=== PATIENT | female | born 1950 | race Caucasian/White ===

== ENCOUNTER 2023-12-26 14:21 | Inpatient (IN) | payer MEDICARE ==
[~2023-12-26] VITALS: Ht 170.2 cm; Wt 75.7 kg
[2023-12-26 15:09] LABS: BASOPHILS % (AUTO) 0.7 % (0.0-2.0); EOSINOPHILS # (AUTO) 0.4 K/uL (0.0-0.7); EOSINOPHILS % (AUTO) 5.8 % (0.0-6.0); HEMATOCRIT 33 % (33-45); HEMOGLOBIN 10.3 g/dL (11.5-14.8); LYMPHOCYTES # (AUTO) 1.4 K/uL (0.8-4.8); LYMPHOCYTES % (AUTO) 22.3 % (20.0-44.0); MEAN CORPUSCULAR HEMOGLOBIN 26 PG (26.0-33.0); MEAN CORPUSCULAR HGB CONC 31 g/dl (31.0-36.0); MEAN CORPUSCULAR VOLUME 84 fL (82-100); MONOCYTES # (AUTO) 0.4 K/uL (0.1-1.30); MONOCYTES % (AUTO) 5.9 % (2.0-12.0); NEUTROPHILS % (AUTO) 65.3 % (43.0-81.0); PLATELET COUNT (AUTO) 186 K/uL (150-450); RED CELL DISTRIBUTION WIDTH 26.8 % (11.5-15.0); WHITE BLOOD COUNT (AUTO) 6.1 K/uL (4.3-11.0)
[2023-12-26] MEDS ORDERED: COLL30OI TP (15:16)
[2023-12-26] MEDS ORDERED: DAPT500V2 IV (15:16)
[2023-12-26] MEDS ORDERED: VIT500LI PO (15:16)
[2023-12-26] MEDS ORDERED: BISA10SU11 RC (15:16)
[2023-12-26] MEDS ORDERED: NA P133E RC (15:16)
[2023-12-26] MEDS ORDERED: MAGN400O6 PO (15:16)
[2023-12-26] MEDS ORDERED: ASPI-1169 PO (15:16)
[2023-12-26] MEDS ORDERED: POLY17PO4 PO (15:16)
[2023-12-26] MEDS ORDERED: INSU100V11 SQ (15:16)
[2023-12-26] MEDS ORDERED: MULT-225 PO (15:16)
[2023-12-26] MEDS ORDERED: SENN-175 PO (15:16)
[2023-12-26] MEDS ORDERED: INSU100I30 SQ (15:16)
[2023-12-26] MEDS ORDERED: ACET-868 PO (15:16)
[2023-12-26] MEDS ORDERED: LOSA25TA27 PO (15:16)
[2023-12-26] MEDS ORDERED: AMLO10TA4 PO (15:16)
[2023-12-26] MEDS ORDERED: POVI3780 TP (15:16)
[2023-12-26] MEDS ORDERED: PETR113O TP (15:16)
[2023-12-26] MEDS ORDERED: CHOL500062 PO (15:16)
[2023-12-26] MEDS ORDERED: AMIN30LI66 PO (15:16)
[2023-12-26] MEDS ORDERED: ATOR40TA PO (15:16)
[2023-12-26] MEDS ORDERED: ZINC57OI4 TP (15:16)
[2023-12-26] MEDS ORDERED: ZINC220C6 PO (15:16)
[2023-12-26 15:18] LABS: CALCIUM, SERUM 9.3 mg/dL (8.5-10.1); CARBON DIOXIDE 24 mmol/L (21-32); CHLORIDE 112 mmol/L (98-107); CREATININE 1.3 mg/dL (0.6-1.3); GLUCOSE 153 mg/dL (74-106); POTASSIUM 4.6 mmol/L (3.5-5.1); SODIUM SERUM 143 mmol/L (136-145); UREA NITROGEN, BLOOD 35 mg/dL (7-18)
[2023-12-26 15:31] LABS: ALANINE AMINOTRANSFERASE 16 U/L (12-78); ALKALINE PHOSPHATASE 115 U/L (46-116); ASPARTATE AMINOTRANSFERASE 17 U/L (15-37); BILIRUBIN,DIRECT 0.2 mg/dL (0.0-0.2); BILIRUBIN,TOTAL 0.5 mg/dL (0.2-1.0); LIPASE 11 U/L (16-77); NT-PRO BNP 1326 pg/mL (0-125); TOTAL PROTEIN, SERUM 8.1 g/dL (6.4-8.2)
[2023-12-26 16:54] LABS: APPEARANCE,URINE Slightly Cloudy (CLEAR); BILIRUBIN,URINE Negative (NEGATIVE); BLOOD, URINE Trace-lysed Ery/uL (NEGATIVE); COLOR,URINE YELLOW (YELLOW); KETONES,URINE Negative (NEGATIVE); LEUKOCYTE ESTERASE ,URINE Large (NEGATIVE); NITRITE, URINE Positive (NEGATIVE); PROTEIN,URINE 100 mg/dl (NEGATIVE); UGLUCOSE Negative (NEGATIVE); UROBILINOGEN,URINE 0.2 EU/dL (0.2)
[2023-12-26 17:12] LABS: ADD URINE CULTURE YES; BACTERIA,URINE 2+ /HPF (None Seen); MUCUS,URINE Moderate /LPF (None Seen); RBC,URINE 0-2 /HPF (0-2); WBC,URINE TOO NUMEROUS TO COUN /HPF (0-3)
[2023-12-26] MEDS ORDERED: DAPTOMYCIN 500 MG/VIAL VIAL IV SCH (20:00)
[2023-12-26] MEDS ORDERED: ONDANSETRON HCL/PF 4 MG/2 ML VIAL IVP PRN (20:00)
[2023-12-26] MEDS ORDERED: ACETAMINOPHEN 325 MG TABLET PO PRN (20:00)
[2023-12-26] MEDS ORDERED: NA PHOS,M-B/NA PHOS,DI-BA 1 EA ENEMA RC PRN (20:00)
[2023-12-26] MEDS ORDERED: MAGNESIUM HYDROXIDE 30 ML UDC PO PRN ×2 (20:00)
[2023-12-26] MEDS ORDERED: Z GUARD REMEDY 4 OZ OINT TP PRN (20:00)
[2023-12-26] MEDS ORDERED: DEXTROSE 50%-WATER 50 ML DISP.SYRIN IV PRN (20:00)
[2023-12-26] MEDS ORDERED: MAG HYDROX/AL HYDROX/SIMETH 30 ML UDC PO PRN (20:00)
[2023-12-26] MEDS ORDERED: ZOLPIDEM TARTRATE 5 MG TABLET PO PRN (20:00)
[2023-12-26] MEDS ORDERED: BISACODYL SUPP (10 MG) 10 MG/SUPP.RECT SUPP.RECT RC PRN (20:00)
[2023-12-26 20:10] VITALS: BP 155/61; TEMP 97.7; O2SAT 99
[2023-12-26 20:15] VITALS: BP 155/61; TEMP 97.7; O2SAT 99
[2023-12-26] MEDS: CEFEPIME 2 GM in IV D5W 100 ML IV SCH (21:06)
[2023-12-26] MEDS: SENNOSIDES 8.6 MG TABLET PO SCH (22:24)
[2023-12-26] MEDS: ATORVASTATIN 40 MG TABLET PO SCH (22:24)
[2023-12-26] MEDS: BLOOD SUGAR DIAGNOSTIC 1 EACH STRIP VI SCH (23:18)
[2023-12-26] MEDS: *INSULIN REGULAR(HUMULIN R)HUM 100 UNIT/ML VIAL SQ PRN (23:19)
[2023-12-26] MEDS: INSULIN GLARGINE, 100 UNIT/ML CARTRIDGE SQ SCH (23:51)
[2023-12-27] VITALS: BP 153/53; TEMP 97.5; O2SAT 97
[2023-12-27 04:00] VITALS: BP 156/58; TEMP 97.3; O2SAT 100
[2023-12-27] MEDS: INSULIN REGULAR, HUMAN 100 UNIT/ML 3 ML VIAL SQ PRN (06:15)
[2023-12-27 07:09] LABS: BASOPHILS % (AUTO) 0.5 % (0.0-2.0); EOSINOPHILS # (AUTO) 0.4 K/uL (0.0-0.7); EOSINOPHILS % (AUTO) 7.1 % (0.0-6.0); HEMATOCRIT 32 % (33-45); HEMOGLOBIN 10.1 g/dL (11.5-14.8); LYMPHOCYTES % (AUTO) 19.3 % (20.0-44.0); MEAN CORPUSCULAR HEMOGLOBIN 27 PG (26.0-33.0); MEAN CORPUSCULAR HGB CONC 32 g/dl (31.0-36.0); MEAN CORPUSCULAR VOLUME 85 fL (82-100); MONOCYTES # (AUTO) 0.4 K/uL (0.1-1.30); MONOCYTES % (AUTO) 6.9 % (2.0-12.0); NEUTROPHILS # (AUTO) 3.5 K/uL (1.8-8.9); NEUTROPHILS % (AUTO) 66.2 % (43.0-81.0); PLATELET COUNT (AUTO) 168 K/uL (150-450); RED BLOOD CELL COUNT(AUTO) 3.76 MIL/uL (4.0-5.2); RED CELL DISTRIBUTION WIDTH 27.5 % (11.5-15.0); WHITE BLOOD COUNT (AUTO) 5.3 K/uL (4.3-11.0)
[2023-12-27 08:00] VITALS: BP 143/58; TEMP 98.5; O2SAT 95
[2023-12-27 08:49] LABS: CALCIUM, SERUM 9.3 mg/dL (8.5-10.1); CARBON DIOXIDE 26 mmol/L (21-32); CHLORIDE 113 mmol/L (98-107); CREATININE 1.3 mg/dL (0.6-1.3); GLUCOSE 123 mg/dL (74-106); MAGNESIUM 2.2 mg/dL (1.8-2.4); PHOSPHORUS 5.1 mg/dL (2.5-4.9); POTASSIUM 4.7 mmol/L (3.5-5.1); SODIUM SERUM 148 mmol/L (136-145); UREA NITROGEN, BLOOD 35 mg/dL (7-18)
[2023-12-27] MEDS: DAPTOMYCIN IV SCH (09:22)
[2023-12-27] MEDS: NS 0.9% IV SCH (09:22)
[2023-12-27] MEDS: POLYETHYLENE GLYCOL 3350 17 GM POWD.PACK PO SCH (09:23)
[2023-12-27] MEDS: LOSARTAN POTASSIUM 25 MG TABLET PO SCH (09:24)
[2023-12-27] MEDS: ASPIRIN 81 MG TAB.CHEW PO SCH (09:24)
[2023-12-27] MEDS: AMLODIPINE BESYLATE 10 MG TABLET PO SCH (09:24)
[2023-12-27] MEDS: THERAHONEY GEL 1.5 OZ TUBE TP SCH ×2 (09:49→14:30)
[2023-12-27] MEDS: LEVETIRACETAM (500MG) 500 MG in IV NS 0.9% 100 ML IV SCH (11:38)
[2023-12-27 12:00] VITALS: BP 142/55; TEMP 98.5; O2SAT 95
[2023-12-27] MEDS ORDERED: CLOPIDOGREL BISULFATE 75 MG TABLET PO SCH (13:00)
[2023-12-27] MEDS: IV D5W 1,000 ML IV SCH (13:01)
[2023-12-27 13:45] LABS: CHOLESTEROL 141 mg/dL (<200); HDL CHOLESTEROL 38 mg/dL (40-60); LDL 65 mg/dL (0-99); TRIGLYCERIDES 193 mg/dL (30-150)
[2023-12-27 16:00] VITALS: BP 135/64; TEMP 98.3; O2SAT 94
[2023-12-27] MEDS ORDERED: CT SWABBABLE VALVE TRANS SET 1 EA INFUS.SET MC ONE (20:50)
[2023-12-27] MEDS ORDERED: IOHEXOL-350 100 ML VIAL IV ONE (20:50)
[2023-12-27] MEDS ORDERED: IV NS 0.9% 250 ML IV ONE (20:50)
[2023-12-28] VITALS: BP 138/60; TEMP 97.5; O2SAT 100
[2023-12-28] MEDS: IV D5W 1,000 ML IV PRN (00:03)
[2023-12-28 04:00] VITALS: BP 140/63; TEMP 97.5; O2SAT 96
[2023-12-28 08:00] VITALS: BP 139/62; TEMP 97.5; O2SAT 97
[2023-12-28 08:02] LABS: BASOPHILS % (AUTO) 0.6 % (0.0-2.0); EOSINOPHILS # (AUTO) 0.4 K/uL (0.0-0.7); HEMATOCRIT 30 % (33-45); HEMOGLOBIN 9.7 g/dL (11.5-14.8); LYMPHOCYTES # (AUTO) 0.8 K/uL (0.8-4.8); LYMPHOCYTES % (AUTO) 15.9 % (20.0-44.0); MEAN CORPUSCULAR HEMOGLOBIN 28 PG (26.0-33.0); MEAN CORPUSCULAR HGB CONC 33 g/dl (31.0-36.0); MEAN CORPUSCULAR VOLUME 85 fL (82-100); MONOCYTES # (AUTO) 0.4 K/uL (0.1-1.30); MONOCYTES % (AUTO) 8.1 % (2.0-12.0); NEUTROPHILS # (AUTO) 3.2 K/uL (1.8-8.9); NEUTROPHILS % (AUTO) 67.4 % (43.0-81.0); PLATELET COUNT (AUTO) 141 K/uL (150-450); RED CELL DISTRIBUTION WIDTH 26.3 % (11.5-15.0); WHITE BLOOD COUNT (AUTO) 4.7 K/uL (4.3-11.0)
[2023-12-28 08:28] LABS: CALCIUM, SERUM 8.8 mg/dL (8.5-10.1); CREATININE 1.3 mg/dL (0.6-1.3); PHOSPHORUS 4.7 mg/dL (2.5-4.9); POTASSIUM 4.3 mmol/L (3.5-5.1)
[2023-12-28] MEDS ORDERED: DAPTOMYCIN 500 MG/VIAL VIAL IV SCH (09:00)
[2023-12-28] MEDS: ASPIRIN 300 MG/SUPP.RECT RC SCH (09:00)
[2023-12-28 09:28] LABS: URINE SODIUM, RANDOM 142 mmol/l (40-220)
[2023-12-28 09:55] LABS: CREATININE, URINE < 5.0 MG/DL (30.0-125.0); URINE TOTAL PROTEIN > 250.0 mg/dL (0-11.9)
[2023-12-28 12:00] VITALS: BP 147/50; TEMP 97.5; O2SAT 95
[2023-12-28 16:00] VITALS: BP 145/61; TEMP 97.5; O2SAT 95
[2023-12-28 19:20] LABS: HIV-1 p24 ANTIGEN NON REACTIVE (NONREACTIVE); HIV-1/2 ANTIBODY NON REACTIVE (NONREACTIVE)
== END 2023-12-28 16:29 | DRG 100 ==
LOC: ER 14:30 → TELE 19:42 → TELE-TD 12-27 21:41
PROVIDERS: ADMIT Internal Medicine; ATTEND Student in an Organized Health Care Education/Training Program
DX: R56.9 Unspecified convulsions (principal); I60.9 Nontraumatic subarachnoid hemorrhage, unspecified; I63.511 Cerebral infarction due to unspecified occlusion or stenosis of right middle cerebral artery; E87.0 Hyperosmolality and hypernatremia; I69.354 Hemiplegia and hemiparesis following cerebral infarction affecting left non-dominant side; L03.116 Cellulitis of left lower limb; G93.40 Encephalopathy, unspecified; N17.9 Acute kidney failure, unspecified; N39.0 Urinary tract infection, site not specified; D64.9 Anemia, unspecified; F03.90 Unspecified dementia, unspecified severity, without behavioral disturbance, psychotic disturbance, mood disturbance, and anxiety; I10 Essential (primary) hypertension; Z20.822 Contact with and (suspected) exposure to COVID-19; Z95.0 Presence of cardiac pacemaker; Z88.0 Allergy status to penicillin; Z88.2 Allergy status to sulfonamides; Z79.4 Long term (current) use of insulin; Z79.899 Other long term (current) drug therapy; Z79.82 Long term (current) use of aspirin; Z86.79 Personal history of other diseases of the circulatory system; I48.91 Unspecified atrial fibrillation; L89.96 Pressure-induced deep tissue damage of unspecified site; L89.611 Pressure ulcer of right heel, stage 1; M89.8X9 Other specified disorders of bone, unspecified site; R29.720 NIHSS score 20; Z86.19 Personal history of other infectious and parasitic diseases; Z66 Do not resuscitate
CPT/HCPCS: 36415; 70450-TC; 70496-TC; 71045-TC; 80048-TC; 80061-TC; 80076-TC; 81001; 82550-TC; 82570-TC; 82962-TC; 83690-TC; 83735-TC; 83880; 84100-TC; 84300-TC; 84484-TC; 85025-TC; 86803; 87040-TC; 87081-TC; 87086-TC; 87806; 92526; 92611-TC; 93307-TC; A4223; A6403; G0378; J0692; J0878; J1815; J1953; J7030; J7050; J7060; J7070; Q9967

== ENCOUNTER 2024-02-01 09:10 | Inpatient (IN) | payer MEDICARE ==
[~2024-02-01] VITALS: Ht 165.1 cm; Wt 81.2 kg
[~2024-02-01 09:10] MED LIST: ACET-868 PO; AMIN30LI66 PO; AMLO10TA4 PO; ASPI-1169 PO; ATOR40TA PO; BISA10SU11 RC; CHOL500062 PO; COLL30OI TP; DAPT500V2 IV; INSU100I30 SQ; INSU100V11 SQ; LOSA25TA27 PO; MAGN400O6 PO; MULT-225 PO; NA P133E RC; PETR113O TP; POLY17PO4 PO; POVI3780 TP; SENN-175 PO; VIT500LI PO; ZINC220C6 PO; ZINC57OI4 TP
[2024-02-01] MEDS ORDERED: LEVOFLOXACIN 750 MG /D5W 150ML PIGGYBACK IV ONE (09:30)
[2024-02-01] MEDS: IV NS 0.9% 1,000 ML IV ONE (09:30)
[2024-02-01 09:44] LABS: EOSINOPHILS # (AUTO) 0.1 K/uL (0.0-0.7); HEMOGLOBIN 10.8 g/dL (11.5-14.8); MONOCYTES # (AUTO) 0.3 K/uL (0.1-1.30); WHITE BLOOD COUNT (AUTO) 5.9 K/uL (4.3-11.0)
[2024-02-01] MEDS: LEVOFLOXACIN 750 MG /D5W 150ML 750 MG in PREMIX 1 EA IV ONE (09:45)
[2024-02-01 09:49] LABS: BASOPHILS % (AUTO) 0.5 % (0.0-2.0); EOSINOPHILS % (AUTO) 1.9 % (0.0-6.0); HEMATOCRIT 33 % (33-45); LYMPHOCYTES % (AUTO) 33.6 % (20.0-44.0); MEAN CORPUSCULAR HEMOGLOBIN 29 PG (26.0-33.0); MEAN CORPUSCULAR HGB CONC 32 g/dl (31.0-36.0); MEAN CORPUSCULAR VOLUME 89 fL (82-100); MONOCYTES % (AUTO) 4.5 % (2.0-12.0); NEUTROPHILS # (AUTO) 3.5 K/uL (1.8-8.9); NEUTROPHILS % (AUTO) 59.5 % (43.0-81.0); PLATELET COUNT (AUTO) 135 K/uL (150-450); RED BLOOD CELL COUNT(AUTO) 3.77 MIL/uL (4.0-5.2); RED CELL DISTRIBUTION WIDTH 15.3 % (11.5-15.0)
[2024-02-01 09:59] LABS: LACTIC ACID 1.7 mmol/L (0.4-2.0)
[2024-02-01 10:03] LABS: CALCIUM, SERUM 8.1 mg/dL (8.5-10.1); CARBON DIOXIDE 20 mmol/L (21-32); CHLORIDE 110 mmol/L (98-107); CREATININE 0.9 mg/dL (0.6-1.3); GLUCOSE 161 mg/dL (74-106); POTASSIUM 4.1 mmol/L (3.5-5.1); SODIUM SERUM 139 mmol/L (136-145); UREA NITROGEN, BLOOD 13 mg/dL (7-18)
[2024-02-01 10:08] LABS: ALANINE AMINOTRANSFERASE 24 U/L (12-78); ALBUMIN 2.6 g/dL (3.4-5.0); ALKALINE PHOSPHATASE 183 U/L (46-116); ASPARTATE AMINOTRANSFERASE 16 U/L (15-37); BILIRUBIN,DIRECT 0.1 mg/dL (0.0-0.2); BILIRUBIN,TOTAL 0.3 mg/dL (0.2-1.0)
[2024-02-01 10:16] LABS: APPEARANCE,URINE Slightly Cloudy (CLEAR); BILIRUBIN,URINE Negative (NEGATIVE); BLOOD, URINE Small Ery/uL (NEGATIVE); COLOR,URINE YELLOW (YELLOW); KETONES,URINE Negative (NEGATIVE); LEUKOCYTE ESTERASE ,URINE Moderate (NEGATIVE); NITRITE, URINE Negative (NEGATIVE); PROTEIN,URINE 30 mg/dl (NEGATIVE); UGLUCOSE Negative (NEGATIVE); UROBILINOGEN,URINE 0.2 EU/dL (0.2)
[2024-02-01 10:22] LABS: INR 1.11 (0.91-1.10); PROTHROMBIN TIME 11.3 SECS (9.2-11.1)
[2024-02-01 10:35] LABS: ADD URINE CULTURE YES; BACTERIA,URINE Many /HPF (None Seen); SQUAMOUS EPITHELIAL CELL,UR Few /HPF (None Seen); WBC,URINE 21-50 /HPF (0-3)
[2024-02-01 10:48] LABS: TOTAL PROTEIN, SERUM 6.7 g/dL (6.4-8.2)
[2024-02-01] MEDS ORDERED: LEVE500T9 PO (10:48)
[2024-02-01] MEDS ORDERED: ASCO500C18 PO (10:48)
[2024-02-01] MEDS ORDERED: MAG30ORA PO (10:48)
[2024-02-01] MEDS ORDERED: INSU100V3 SQ (10:48)
[2024-02-01] MEDS ORDERED: MEGE400O4 PO (10:48)
[2024-02-01] MEDS ORDERED: MULT-619 PO (10:48)
[2024-02-01] MEDS ORDERED: ACET325T53 PO (10:48)
[2024-02-01] MEDS ORDERED: IPRA3AMP23 IH (10:48)
[2024-02-01 11:20] LABS: PARTIAL THROMBOPLASTIN TIME 32.8 SEC (24.3-34.3)
[2024-02-01] MEDS: VANCOMYCIN 1 GM in IV D5W 250 ML IV ONE (11:20)
[2024-02-01] MEDS ORDERED: IPRATROPIUM NEB FS 0.5 MG/2.5 ML AMPUL.NEB NEB PRN (12:00)
[2024-02-01] MEDS ORDERED: DEXTROSE 50%-WATER 50 ML DISP.SYRIN IV PRN (12:00)
[2024-02-01] MEDS ORDERED: ZOLPIDEM TARTRATE 5 MG TABLET PO PRN (12:00)
[2024-02-01] MEDS ORDERED: BISACODYL SUPP (10 MG) 10 MG/SUPP.RECT SUPP.RECT RC PRN (12:00)
[2024-02-01] MEDS ORDERED: ONDANSETRON HCL/PF 4 MG/2 ML VIAL IVP PRN (12:00)
[2024-02-01] MEDS ORDERED: ACETAMINOPHEN 325 MG TABLET PO PRN (12:00)
[2024-02-01] MEDS ORDERED: MAG HYDROX/AL HYDROX/SIMETH 30 ML UDC PO PRN (12:00)
[2024-02-01] MEDS ORDERED: Z GUARD REMEDY 4 OZ OINT TP PRN (12:00)
[2024-02-01] MEDS ORDERED: MAGNESIUM HYDROXIDE 30 ML UDC PO PRN ×2 (12:00)
[2024-02-01] MEDS ORDERED: methylPREDNISolone SOD SUCC 40 MG/ML VIAL IV SCH (12:00)
[2024-02-01] MEDS ORDERED: ALBUTEROL FS 2.5 MG/3 ML VIAL.NEB NEB PRN (12:00)
[2024-02-01] MEDS: BLOOD SUGAR DIAGNOSTIC 1 EACH STRIP IN SCH (12:25)
[2024-02-01] MEDS ORDERED: Medication Not On Formulary EA (Amino AC/Protein Hydr/Whey Pro (Liquacel Liquid Protein PO SCH (13:00)
[2024-02-01 16:00] VITALS: BP 138/60; TEMP 97.5; O2SAT 98
[2024-02-01] MEDS: ASCORBIC ACID 500 MG TABLET PO SCH (17:04)
[2024-02-01] MEDS: MEGESTROL ACETATE SUSP 400 MG/10 ML UDC PO SCH (17:04)
[2024-02-01] MEDS: methylPREDNISolone SOD SUCC 40 MG/ML VIAL IV SCH (17:05)
[2024-02-01] MEDS: INSULIN REGULAR, HUMAN 100 UNIT/ML 3 ML VIAL SQ PRN (17:10)
[2024-02-01 19:38] VITALS: O2SAT 98
[2024-02-01] MEDS: ALBUTEROL FS 2.5 MG/0.5 ML VIAL.NEB NEB SCH (19:52)
[2024-02-01] MEDS: IPRATROPIUM NEB FS 0.5 MG/2.5 ML AMPUL.NEB NEB SCH (19:52)
[2024-02-01 19:53] VITALS: O2SAT 98; O2SAT 99
[2024-02-01 20:00] VITALS: BP 134/61; TEMP 98.2; O2SAT 96
[2024-02-01] MEDS: LEVETIRACETAM (250 MG) 250 MG TABLET PO SCH (20:38)
[2024-02-01] MEDS: ENOXAPARIN SODIUM 40 MG/0.4 ML DISP.SYRIN SQ SCH (20:41)
[2024-02-01] MEDS: INSULIN GLARGINE, 100 UNIT/ML CARTRIDGE SQ SCH (21:58)
[2024-02-01] MEDS: SENNOSIDES 8.6 MG TABLET PO SCH (22:05)
[2024-02-01] MEDS: VANCOMYCIN 750 MG in IV D5W 250 ML IV SCH (22:05)
[2024-02-01] MEDS ORDERED: VANCOMYCIN 750 MG in IV D5W 250 ML IV SCH (23:00)
[2024-02-01 23:55] VITALS: O2SAT 98
[2024-02-02] VITALS (12 sets, daily range): BP systolic 119–137; BP diastolic 54–80; TEMP 97.8–98.3; O2SAT 94–99
[2024-02-02 06:50] LABS: BASOPHILS % (AUTO) 0.3 % (0.0-2.0); HEMATOCRIT 28 % (33-45); HEMOGLOBIN 9.3 g/dL (11.5-14.8); LYMPHOCYTES # (AUTO) 0.5 K/uL (0.8-4.8); LYMPHOCYTES % (AUTO) 16.3 % (20.0-44.0); MEAN CORPUSCULAR HEMOGLOBIN 30 PG (26.0-33.0); MEAN CORPUSCULAR HGB CONC 33 g/dl (31.0-36.0); MEAN CORPUSCULAR VOLUME 90 fL (82-100); MONOCYTES # (AUTO) 0.1 K/uL (0.1-1.30); NEUTROPHILS # (AUTO) 2.2 K/uL (1.8-8.9); NEUTROPHILS % (AUTO) 78.4 % (43.0-81.0); PLATELET COUNT (AUTO) 111 K/uL (150-450); RED BLOOD CELL COUNT(AUTO) 3.15 MIL/uL (4.0-5.2); RED CELL DISTRIBUTION WIDTH 15.4 % (11.5-15.0); WHITE BLOOD COUNT (AUTO) 2.8 K/uL (4.3-11.0)
[2024-02-02 06:59] LABS: ALANINE AMINOTRANSFERASE 18 U/L (12-78); ALBUMIN 1.9 g/dL (3.4-5.0); ALKALINE PHOSPHATASE 146 U/L (46-116); ASPARTATE AMINOTRANSFERASE 10 U/L (15-37); BILIRUBIN,DIRECT 0.1 mg/dL (0.0-0.2); BILIRUBIN,TOTAL 0.2 mg/dL (0.2-1.0); CALCIUM, SERUM 7.4 mg/dL (8.5-10.1); CARBON DIOXIDE 21 mmol/L (21-32); CHLORIDE 113 mmol/L (98-107); CREATININE 1.2 mg/dL (0.6-1.3); GLUCOSE 146 mg/dL (74-106); MAGNESIUM 1.4 mg/dL (1.8-2.4); PHOSPHORUS 4.2 mg/dL (2.5-4.9); SODIUM SERUM 140 mmol/L (136-145); TOTAL PROTEIN, SERUM 5.8 g/dL (6.4-8.2); UREA NITROGEN, BLOOD 17 mg/dL (7-18)
[2024-02-02 07:11] LABS: CHOLESTEROL 97 mg/dL (<200); HDL CHOLESTEROL 26 mg/dL (40-60); LDL 52 mg/dL (0-99); THYROID STIMULATING HORMONE 2.072 uIU/mL (0.358-3.74); TRIGLYCERIDES 82 mg/dL (30-150)
[2024-02-02 08:37] LABS: IRON, SERUM 34 ug/dl (50-175); TOTAL IRON BINDING CAPACITY 131 ug/dl (250-450)
[2024-02-02] MEDS: Magnesium 1GM/D5W 100ML PREMIX 100 ML IV SCH (09:06)
[2024-02-02] MEDS: POLYETHYLENE GLYCOL 3350 17 GM POWD.PACK PO SCH (09:07)
[2024-02-02] MEDS: PANTOPRAZOLE 40 MG VIAL IV SCH (09:07)
[2024-02-02] MEDS: CHOLECALCIFEROL 1,000 UNIT TABLET (VIT D3) PO SCH (09:08)
[2024-02-02] MEDS: LOSARTAN POTASSIUM 25 MG TABLET PO SCH (09:08)
[2024-02-02] MEDS: MULTIVIT W/MINERALS 1 TAB TABLET PO SCH (09:08)
[2024-02-02] MEDS: AMLODIPINE BESYLATE 10 MG TABLET PO SCH (09:09)
[2024-02-02] MEDS: MAGNESIUM OXIDE 400 MG TABLET PO ONE (10:30)
[2024-02-02] MEDS: LEVOFLOXACIN 750 MG /D5W 150ML 150 ML IV SCH (10:30)
[2024-02-03] VITALS (12 sets, daily range): BP systolic 118–140; BP diastolic 61–65; TEMP 97.5–98.8; O2SAT 95–100
[2024-02-03 07:15] LABS: BASOPHILS % (AUTO) 0.1 % (0.0-2.0); EOSINOPHILS % (AUTO) 0.1 % (0.0-6.0); HEMATOCRIT 27 % (33-45); HEMOGLOBIN 8.8 g/dL (11.5-14.8); LYMPHOCYTES # (AUTO) 0.3 K/uL (0.8-4.8); LYMPHOCYTES % (AUTO) 12.4 % (20.0-44.0); MEAN CORPUSCULAR HEMOGLOBIN 29 PG (26.0-33.0); MEAN CORPUSCULAR HGB CONC 33 g/dl (31.0-36.0); MEAN CORPUSCULAR VOLUME 89 fL (82-100); MONOCYTES # (AUTO) 0.1 K/uL (0.1-1.30); NEUTROPHILS # (AUTO) 2.2 K/uL (1.8-8.9); NEUTROPHILS % (AUTO) 84.4 % (43.0-81.0); PLATELET COUNT (AUTO) 118 K/uL (150-450); RED BLOOD CELL COUNT(AUTO) 2.99 MIL/uL (4.0-5.2); RED CELL DISTRIBUTION WIDTH 14.9 % (11.5-15.0); WHITE BLOOD COUNT (AUTO) 2.6 K/uL (4.3-11.0)
[2024-02-03 07:18] LABS: CALCIUM, SERUM 8.1 mg/dL (8.5-10.1); CREATININE 1.1 mg/dL (0.6-1.3); MAGNESIUM 2.3 mg/dL (1.8-2.4); PHOSPHORUS 3.4 mg/dL (2.5-4.9); POTASSIUM 4.5 mmol/L (3.5-5.1)
[2024-02-03] MEDS: LEVETIRACETAM SOL (5 ML) 100 MG/ML UDC PO SCH (10:48)
[2024-02-04] VITALS (8 sets, daily range): BP systolic 130–146; BP diastolic 56–88; TEMP 98–98.9; O2SAT 95–100
[2024-02-04] MEDS: PANTOPRAZOLE 40 MG TABLET.DR PO SCH (08:45)
[2024-02-04 08:49] LABS: BASOPHILS % (AUTO) 0.1 % (0.0-2.0); HEMATOCRIT 28 % (33-45); HEMOGLOBIN 8.9 g/dL (11.5-14.8); LYMPHOCYTES # (AUTO) 0.7 K/uL (0.8-4.8); LYMPHOCYTES % (AUTO) 16.8 % (20.0-44.0); MEAN CORPUSCULAR HEMOGLOBIN 29 PG (26.0-33.0); MEAN CORPUSCULAR HGB CONC 32 g/dl (31.0-36.0); MEAN CORPUSCULAR VOLUME 91 fL (82-100); MONOCYTES # (AUTO) 0.3 K/uL (0.1-1.30); MONOCYTES % (AUTO) 6.4 % (2.0-12.0); NEUTROPHILS # (AUTO) 3.4 K/uL (1.8-8.9); NEUTROPHILS % (AUTO) 76.7 % (43.0-81.0); PLATELET COUNT (AUTO) 142 K/uL (150-450); RED BLOOD CELL COUNT(AUTO) 3.04 MIL/uL (4.0-5.2); RED CELL DISTRIBUTION WIDTH 14.7 % (11.5-15.0); WHITE BLOOD COUNT (AUTO) 4.5 K/uL (4.3-11.0)
[2024-02-04 09:57] LABS: CALCIUM, SERUM 7.9 mg/dL (8.5-10.1); CARBON DIOXIDE 21 mmol/L (21-32); CHLORIDE 110 mmol/L (98-107); CREATININE 1.1 mg/dL (0.6-1.3); GLUCOSE 141 mg/dL (74-106); PHOSPHORUS 2.6 mg/dL (2.5-4.9); POTASSIUM 4.3 mmol/L (3.5-5.1); SODIUM SERUM 138 mmol/L (136-145); UREA NITROGEN, BLOOD 21 mg/dL (7-18)
[2024-02-04] MEDS: LEVETIRACETAM (250 MG) 250 MG TABLET PO SCH (20:38)
[2024-02-04] MEDS: VANCOMYCIN 1 GM in IV D5W 250 ML IV SCH (23:13)
[2024-02-05 01:31] VITALS: O2SAT 96
[2024-02-05 01:41] VITALS: O2SAT 98
[2024-02-05 04:00] VITALS: BP 144/54; TEMP 99; O2SAT 98
[2024-02-05 07:45] VITALS: O2SAT 99
[2024-02-05 07:55] VITALS: O2SAT 99
[2024-02-05 08:00] VITALS: BP 137/59; TEMP 98.6; O2SAT 99
[2024-02-05] MEDS ORDERED: LEVO750T46 PO (12:26)
[2024-02-05] MEDS ORDERED: METH4TAB3 PO (12:26)
[2024-02-07] MEDS ORDERED: LEVOFLOXACIN 750 MG /D5W 150ML 150 ML IV SCH (10:00)
== END 2024-02-05 14:00 | DRG 177 ==
LOC: ER 09:12 → TELE-TD 13:44 → TELE1 14:22 → MEDSG1 02-02 10:51
PROVIDERS: ADMIT Nurse Practitioner Acute Care; ATTEND Nurse Practitioner Acute Care
DX: J15.69 Pneumonia due to other Gram-negative bacteria (principal); J96.01 Acute respiratory failure with hypoxia; E44.0 Moderate protein-calorie malnutrition; J44.1 Chronic obstructive pulmonary disease with (acute) exacerbation; N39.0 Urinary tract infection, site not specified; J44.0 Chronic obstructive pulmonary disease with (acute) lower respiratory infection; D61.818 Other pancytopenia; I69.354 Hemiplegia and hemiparesis following cerebral infarction affecting left non-dominant side; I48.21 Permanent atrial fibrillation; F03.90 Unspecified dementia, unspecified severity, without behavioral disturbance, psychotic disturbance, mood disturbance, and anxiety; F17.200 Nicotine dependence, unspecified, uncomplicated; G40.909 Epilepsy, unspecified, not intractable, without status epilepticus; I10 Essential (primary) hypertension; Z79.4 Long term (current) use of insulin; Z79.899 Other long term (current) drug therapy; Z88.2 Allergy status to sulfonamides; Z88.0 Allergy status to penicillin; Z87.01 Personal history of pneumonia (recurrent); Z95.0 Presence of cardiac pacemaker; E66.9 Obesity, unspecified; I48.91 Unspecified atrial fibrillation; E78.5 Hyperlipidemia, unspecified; B96.1 Klebsiella pneumoniae [K. pneumoniae] as the cause of diseases classified elsewhere; E11.9 Type 2 diabetes mellitus without complications; E88.09 Other disorders of plasma-protein metabolism, not elsewhere classified; Z68.29 Body mass index [BMI] 29.0-29.9, adult; F09 Unspecified mental disorder due to known physiological condition
CPT/HCPCS: 36415; 71045-TC; 80048-TC; 80061-TC; 80076-TC; 80202-TC; 81001; 82962-TC; 83540-TC; 83605-TC; 83735-TC; 84100-TC; 84443-TC; 84484-TC; 85025-TC; 85730-TC; 87040-TC; 87086-TC; 93970-TC; 94760-TC; 94761-TC; 94762-TC; 94799-TC; 97110-TC; 97112-TC; 97530-TC; A4216; A4223; C9113; G0378; J1650; J1815; J1953; J1956; J2920; J3370; J3371; J3475; J7030; J7040; J7050; J7060

== ENCOUNTER 2024-07-03 12:26 | Inpatient (IN) | payer MEDICARE, OTHER ==
[~2024-07-03] VITALS: Ht 154.9 cm; Wt 65.8 kg
[~2024-07-03 12:26] MED LIST changes: +ACET325T53 PO; +ASCO500C18 PO; -ASPI-1169 PO; -COLL30OI TP; -DAPT500V2 IV; -INSU100V11 SQ; +INSU100V3 SQ; +IPRA3AMP23 IH; +LEVE500T9 PO; +LEVO750T46 PO; +MAG30ORA PO; +MEGE400O4 PO; +METH4TAB3 PO; -MULT-225 PO; +MULT-619 PO; -VIT500LI PO; -ZINC220C6 PO
[2024-07-03] MEDS: IV NS 0.9% 1,000 ML BAG IV ONE (12:59)
[2024-07-03 13:23] LABS: BASOPHILS % (AUTO) 0.6 % (0.0-2.0); EOSINOPHILS # (AUTO) 0.2 K/uL (0.0-0.7); EOSINOPHILS % (AUTO) 2.8 % (0.0-6.0); HEMATOCRIT 27 % (33-45); HEMOGLOBIN 8.9 g/dL (11.5-14.8); LYMPHOCYTES # (AUTO) 1.6 K/uL (0.8-4.8); LYMPHOCYTES % (AUTO) 22.6 % (20.0-44.0); MEAN CORPUSCULAR HEMOGLOBIN 30 PG (26.0-33.0); MEAN CORPUSCULAR HGB CONC 33 g/dl (31.0-36.0); MEAN CORPUSCULAR VOLUME 92 fL (82-100); MONOCYTES # (AUTO) 0.5 K/uL (0.1-1.30); MONOCYTES % (AUTO) 7.3 % (2.0-12.0); NEUTROPHILS # (AUTO) 4.7 K/uL (1.8-8.9); NEUTROPHILS % (AUTO) 66.7 % (43.0-81.0); PLATELET COUNT (AUTO) 185 K/uL (150-450); RED BLOOD CELL COUNT(AUTO) 2.92 MIL/uL (4.0-5.2); RED CELL DISTRIBUTION WIDTH 13.7 % (11.5-15.0)
[2024-07-03 13:28] LABS: CALCIUM, SERUM 8.7 mg/dL (8.5-10.1); CARBON DIOXIDE 28 mmol/L (21-32); CHLORIDE 108 mmol/L (98-107); CREATININE 1.1 mg/dL (0.6-1.3); GLUCOSE 121 mg/dL (74-106); INR 0.98 (0.91-1.10); PARTIAL THROMBOPLASTIN TIME 24.2 SEC (24.3-34.3); POTASSIUM 4.2 mmol/L (3.5-5.1); PROTHROMBIN TIME 10.4 SECS (9.2-11.1); SODIUM SERUM 144 mmol/L (136-145); UREA NITROGEN, BLOOD 25 mg/dL (7-18)
[2024-07-03 13:34] LABS: ALANINE AMINOTRANSFERASE 19 U/L (12-78); ALBUMIN 2.3 g/dL (3.4-5.0); ALKALINE PHOSPHATASE 182 U/L (46-116); ASPARTATE AMINOTRANSFERASE 26 U/L (15-37); BILIRUBIN,TOTAL 0.1 mg/dL (0.2-1.0); LACTIC ACID 0.8 mmol/L (0.4-2.0); TOTAL PROTEIN, SERUM 6.6 g/dL (6.4-8.2)
[2024-07-03] MEDS ORDERED: BUSP5TAB3 PO (14:08)
[2024-07-03] MEDS ORDERED: DIVA125C5 PO (14:08)
[2024-07-03] MEDS ORDERED: HYDR-500 PO (14:08)
[2024-07-03] MEDS ORDERED: ZINC220C6 PO (14:08)
[2024-07-03] MEDS ORDERED: BALS60OI TP (14:08)
[2024-07-03] MEDS ORDERED: MIRT7.5T10 PO (14:08)
[2024-07-03 14:45] LABS: APPEARANCE,URINE TURBID (CLEAR); COLOR,URINE YELLOW (YELLOW); PH,URINE 8.5 (5.0-8.0); PROTEIN,URINE 2+ mg/dl (NEGATIVE)
[2024-07-03 14:46] LABS: BILIRUBIN,URINE NEGATIVE (NEGATIVE); BLOOD, URINE NEGATIVE Ery/uL (NEGATIVE); KETONES,URINE NEGATIVE (NEGATIVE); NITRITE, URINE POSITIVE (NEGATIVE); UGLUCOSE NEGATIVE (NEGATIVE); UROBILINOGEN,URINE 0.2 EU/dL (0.2)
[2024-07-03 14:51] LABS: RBC,URINE 0-2 /HPF (0-2)
[2024-07-03 14:52] LABS: LEUKOCYTE ESTERASE ,URINE 1+ (NEGATIVE)
[2024-07-03 14:53] LABS: ADD URINE CULTURE YES; BACTERIA,URINE 1+ /HPF (None Seen); SQUAMOUS EPITHELIAL CELL,UR 0-2 /HPF (None Seen)
[2024-07-03 14:54] LABS: URINE AMORPHOUS PHOSPHATES Moderate /HPF (None Seen)
[2024-07-03 14:55] LABS: TRIPLE PHOSPHATE CRYSTAL,UR Moderate /HPF (None Seen)
[2024-07-03] MEDS ORDERED: LEVOFLOXACIN 500 MG /D5W 100ML 100 ML IV ONE (15:40)
[2024-07-03] MEDS: LEVOFLOXACIN 500 MG /D5W 100ML 500 MG in PREMIX 1 EA IV SCH (15:58)
[2024-07-03] MEDS ORDERED: hydrALAZINE HCL IV 20 MG VIAL IV PRN (16:30)
[2024-07-03] MEDS ORDERED: MORPHINE SULFATE INJ 2 MG/ML DISP.SYRIN IV PRN (16:30)
[2024-07-03] MEDS ORDERED: ONDANSETRON HCL/PF 4 MG/2 ML VIAL IVP PRN (16:30)
[2024-07-03] MEDS ORDERED: DEXTROSE 50%-WATER 50 ML DISP.SYRIN IV PRN (16:30)
[2024-07-03] MEDS: INSULIN GLARGINE, 100 UNIT/ML CARTRIDGE SQ SCH (17:00)
[2024-07-03] MEDS: NITROFURANTOIN/MONOHYDRATE MACROCRYSTALS 100 MG CAPSULE PO SCH (18:14)
[2024-07-03] MEDS: busPIRone 5 MG TABLET PO SCH (18:14)
[2024-07-03] MEDS: DIVALPROEX SODIUM 125 MG CAP.SPRINK PO SCH (18:14)
[2024-07-03] MEDS: BLOOD SUGAR DIAGNOSTIC 1 EACH STRIP VI SCH (18:14)
[2024-07-03] MEDS: DOCUSATE SODIUM LIQ 100 MG/10 ML UDC PO SCH (18:14)
[2024-07-03] MEDS: HEPARIN SODIUM, PORCINE 5000 UNITS/1 ML VIAL SQ SCH (20:09)
[2024-07-03] MEDS: LEVETIRACETAM (250 MG) 250 MG TABLET PO SCH (20:16)
[2024-07-03 20:59] VITALS: BP 106/65; TEMP 98.2; O2SAT 98
[2024-07-03] MEDS: *INSULIN REGULAR(HUMULIN R)HUM 100 UNIT/ML VIAL SQ PRN (21:12)
[2024-07-03] MEDS: ATORVASTATIN 40 MG TABLET PO SCH (21:14)
[2024-07-04] VITALS (8 sets, daily range): BP systolic 106–138; BP diastolic 49–67; TEMP 97.5–99.7; O2SAT 96–100
[2024-07-04] MEDS: hydrOXYzine 10 MG TABLET PO PRN (00:33)
[2024-07-04 07:58] LABS: BASOPHILS % (AUTO) 0.3 % (0.0-2.0); EOSINOPHILS # (AUTO) 0.2 K/uL (0.0-0.7); EOSINOPHILS % (AUTO) 2.7 % (0.0-6.0); HEMATOCRIT 27 % (33-45); LYMPHOCYTES # (AUTO) 1.7 K/uL (0.8-4.8); LYMPHOCYTES % (AUTO) 28.6 % (20.0-44.0); MEAN CORPUSCULAR HEMOGLOBIN 30 PG (26.0-33.0); MEAN CORPUSCULAR HGB CONC 33 g/dl (31.0-36.0); MEAN CORPUSCULAR VOLUME 92 fL (82-100); MONOCYTES # (AUTO) 0.5 K/uL (0.1-1.30); MONOCYTES % (AUTO) 7.8 % (2.0-12.0); NEUTROPHILS # (AUTO) 3.6 K/uL (1.8-8.9); NEUTROPHILS % (AUTO) 60.6 % (43.0-81.0); PLATELET COUNT (AUTO) 174 K/uL (150-450); RED BLOOD CELL COUNT(AUTO) 2.98 MIL/uL (4.0-5.2); RED CELL DISTRIBUTION WIDTH 13.4 % (11.5-15.0); WHITE BLOOD COUNT (AUTO) 5.9 K/uL (4.3-11.0)
[2024-07-04 08:15] LABS: ALANINE AMINOTRANSFERASE 18 U/L (12-78); ALBUMIN 2.2 g/dL (3.4-5.0); ALKALINE PHOSPHATASE 156 U/L (46-116); ASPARTATE AMINOTRANSFERASE 14 U/L (15-37); BILIRUBIN,TOTAL 0.2 mg/dL (0.2-1.0); CALCIUM, SERUM 8.7 mg/dL (8.5-10.1); CARBON DIOXIDE 24 mmol/L (21-32); CHLORIDE 109 mmol/L (98-107); CREATININE 1.1 mg/dL (0.6-1.3); GLUCOSE 99 mg/dL (74-106); MAGNESIUM 2.3 mg/dL (1.8-2.4); PHOSPHORUS 4.8 mg/dL (2.5-4.9); POTASSIUM 4.1 mmol/L (3.5-5.1); SODIUM SERUM 141 mmol/L (136-145); TOTAL PROTEIN, SERUM 6.2 g/dL (6.4-8.2); UREA NITROGEN, BLOOD 22 mg/dL (7-18)
[2024-07-04] MEDS: POLYETHYLENE GLYCOL 3350 17 GM POWD.PACK PO SCH (08:53)
[2024-07-04] MEDS: LOSARTAN POTASSIUM 25 MG TABLET PO SCH (08:53)
[2024-07-04] MEDS: AMLODIPINE BESYLATE 10 MG TABLET PO SCH (08:53)
[2024-07-04] MEDS ORDERED: Z GUARD REMEDY 4 OZ OINT TP PRN (10:30)
[2024-07-04] MEDS: THERAHONEY GEL 1.5 OZ TUBE TP SCH (11:08)
[2024-07-04] MEDS: Z GUARD REMEDY 4 OZ OINT TP SCH (11:08)
[2024-07-04] MEDS: INSULIN REGULAR, HUMAN 100 UNIT/ML 3 ML VIAL SQ PRN (11:30)
[2024-07-05] VITALS: BP 118/61; TEMP 98.8; O2SAT 96
[2024-07-05 04:00] VITALS: BP 111/66; TEMP 98.2; O2SAT 96
[2024-07-05 04:12] VITALS: BP 111/66; TEMP 98.2; O2SAT 96
[2024-07-05 08:00] VITALS: BP 133/70; TEMP 98.2; O2SAT 97
[2024-07-05] MEDS ORDERED: NITR100C15 PO (11:45)
[2024-07-05 16:00] VITALS: BP 136/92; TEMP 97.9; O2SAT 96
[2024-07-05 20:25] VITALS: BP 109/52; TEMP 99.1; O2SAT 97
[2024-07-06 00:21] VITALS: BP 135/58; TEMP 99.3; O2SAT 95
[2024-07-06] MEDS: ACETAMINOPHEN 325 MG TABLET PO PRN (00:24)
[2024-07-06 04:00] VITALS: BP 110/55; TEMP 98.3; O2SAT 97
[2024-07-06 08:00] VITALS: BP 116/62; TEMP 97.5; O2SAT 97; O2SAT 99
[2024-07-06] MEDS: GLUCERNA SHAKE 237 ML CAN PO SCH (08:10)
[2024-07-06 09:26] VITALS: BP 116/62
== END 2024-07-06 17:00 | DRG 622 ==
LOC: ER 12:33 → TELE1 14:56 → MEDSG1 07-05 10:52
PROVIDERS: ADMIT Internal Medicine; ATTEND Internal Medicine
PROC: 0JB70ZZ Excision of Back Subcutaneous Tissue and Fascia, Open Approach (ICD-10-PCS; principal; 2024-07-05)
DX: R62.7 Adult failure to thrive (principal); G93.41 Metabolic encephalopathy; L89.153 Pressure ulcer of sacral region, stage 3; E44.0 Moderate protein-calorie malnutrition; N39.0 Urinary tract infection, site not specified; I69.354 Hemiplegia and hemiparesis following cerebral infarction affecting left non-dominant side; Z66 Do not resuscitate; F03.90 Unspecified dementia, unspecified severity, without behavioral disturbance, psychotic disturbance, mood disturbance, and anxiety; I10 Essential (primary) hypertension; I48.91 Unspecified atrial fibrillation; E11.9 Type 2 diabetes mellitus without complications; Z88.0 Allergy status to penicillin; Z88.2 Allergy status to sulfonamides; Z79.899 Other long term (current) drug therapy; Z79.4 Long term (current) use of insulin; Z87.09 Personal history of other diseases of the respiratory system; B96.89 Other specified bacterial agents as the cause of diseases classified elsewhere; D64.9 Anemia, unspecified; E88.09 Other disorders of plasma-protein metabolism, not elsewhere classified; R56.9 Unspecified convulsions; J44.9 Chronic obstructive pulmonary disease, unspecified; E78.5 Hyperlipidemia, unspecified
CPT/HCPCS: 36415; 71045-TC; 80048-TC; 80053-TC; 80076-TC; 81001; 82962-TC; 83605-TC; 83735-TC; 84100-TC; 84484-TC; 85025-TC; 85730-TC; 87040-TC; 87086-TC; 97110-TC; 97530-TC; 97535-TC; A4216; A4223; A6403; G0378; J1644; J1815; J1956; Q0177